=== PATIENT | female | born 1960 | race Caucasian/White ===

== ENCOUNTER 2022-05-09 10:46 | Inpatient (IN) | payer BC ==
[~2022-05-09] VITALS: Ht 157.5 cm; Wt 124.3 kg
[2022-05-09] MEDS ORDERED: METHYLPREDNISOLONE SOD SUCC 125 MG/2ML VIAL IV STA (11:08)
[2022-05-09] MEDS ORDERED: ALBUTEROL/IPRATROPIUM 3 ML NEB NEB ONE (11:15)
[2022-05-09 12:00] LABS: BASOPHILS # (AUTO) 0.1 (0.0-0.1); BASOPHILS % 0.4 % (0.0-1.0); EOSINOPHILS # (AUTO) 0.4 (0.0-0.4); EOSINOPHILS % 3.9 % (0.0-6.0); HEMATOCRIT 55.1 % (34.2-44.1); HEMOGLOBIN 16.9 g/dL (12.0-16.0); LYMPHOCYTES # (AUTO) 1.4 (1.0-3.2); LYMPHOCYTES % 12.2 % (18.0-39.1); MEAN CORPUSCULAR HEMOGLOBIN 31.1 pg (28-32); MEAN CORPUSCULAR HGB CONC 30.7 g/dL (31-35); MEAN CORPUSCULAR VOLUME 101.3 fL (81-99); MONOCYTES # (AUTO) 0.7 (0.2-0.8); MONOCYTES % 6.1 % (4.4-11.3); NEUTROPHILS # (AUTO) 8.6 (2.1-6.9); PLATELET COUNT 237 x10e3/uL (140-360); RED BLOOD COUNT 5.44 x10e6/uL (3.6-5.1); RED CELL DISTRIBUTION WIDTH 11.7 % (11.7-14.4)
[2022-05-09 12:12] LABS: INR 1.02; PROTHROMBIN TIME 13.6 seconds (11.9-14.5)
[2022-05-09 12:20] LABS: ALBUMIN 3.9 g/dL (3.5-5.0); ALBUMIN/GLOBULIN RATIO 0.9 (0.8-2.0); ANION GAP 14.9 mmol/L (8-16); CALCIUM 9.7 mg/dL (8.4-10.2); CREATININE, SERUM 0.7 mg/dL (0.57-1.11); MAGNESIUM 1.9 MG/DL (1.3-2.1); POTASSIUM 3.9 mmol/L (3.5-5.1)
[2022-05-09 12:25] LABS: B-TYPE NATRIURETIC PEPTIDE2 12.7 pg/mL (0-100)
[2022-05-09 12:27] LABS: CREATINE KINASE MB 0.7 ng/mL (0-5.0)
[2022-05-09] MEDS ORDERED: Morphine 2mg Syringe 2 MG/ML SYR IV STA (12:45)
[2022-05-09] MEDS ORDERED: ONDANSETRON HCL INJ 2MG/ML 2ML 2 MG/ML VIAL IV STA (12:45)
[2022-05-09] MEDS ORDERED: SODIUM CHLORIDE 0.9% 1000ML 1,000 ML IV SCH (12:45)
[2022-05-09] MEDS ORDERED: PROMETHAZINE HCL 25 MG TAB PO PRN ×2 (13:00→14:30)
[2022-05-09] MEDS ORDERED: LEVALBUTEROL HCL SOLN NEBU 0.63 MG/3 ML NEB INH PRN (13:00)
[2022-05-09] MEDS ORDERED: METHYLPREDNISOLONE SOD SUCC 125 MG/2ML VIAL IV SCH (14:00)
[2022-05-09] MEDS ORDERED: ZOLPIDEM TARTRATE 5 MG TAB PO PRN (14:30)
[2022-05-09 15:15] VITALS: BP 135/88
[2022-05-09 16:27] VITALS: BP 135/88
[2022-05-09 16:35] VITALS: BP 135/88
[2022-05-09] MEDS ORDERED: TRAZODONE HCL100 MG PO (16:47)
[2022-05-09] MEDS ORDERED: LUNESTA1 MG PO (16:47)
[2022-05-09] MEDS ORDERED: SERTRALINE HCL50 MG PO (16:47)
[2022-05-09] MEDS ORDERED: NEURONTIN400 MG PO (16:47)
[2022-05-09] MEDS: BUDESONIDE/FORMOTEROL 160/4.5MCG INHALER INH SCH (19:00)
[2022-05-09] MEDS ORDERED: FUROSEMIDE INJ 10 MG/ML 4 ML VIAL IV ONE (19:10)
[2022-05-09 19:12] LABS: CREATINE KINASE 32 IU/L (29-168)
[2022-05-09 20:00] VITALS: BP 138/86
[2022-05-09] MEDS: METHYLPREDNISOLONE SOD SUCC 125 MG/2ML VIAL IV SCH (21:37)
[2022-05-09] MEDS ORDERED: METHADONE HCL10 MG PO (21:51)
[2022-05-09] MEDS ORDERED: METHADONE HCL 5 MG TAB PO PRN (22:45)
[2022-05-10] VITALS (7 sets, daily range): BP systolic 129–159; BP diastolic 80–89
[2022-05-10] MEDS ORDERED: POLYETHYLENE GLYCOL 3350 17 GM PACK PO PRN (00:30)
[2022-05-10] MEDS ORDERED: ONDANSETRON HCL INJ 2MG/ML 2ML 2 MG/ML VIAL IV PRN (00:30)
[2022-05-10] MEDS ORDERED: ACETAMINOPHEN 325 MG TAB PO PRN (00:30)
[2022-05-10] MEDS ORDERED: TEMAZEPAM 15 MG CAP PO PRN (00:30)
[2022-05-10] MEDS ORDERED: METOPROLOL TARTRATE INJ 1 MG/ML VIAL IV PRN (00:30)
[2022-05-10 05:56] LABS: BASOPHILS % 0.1 % (0.0-1.0); HEMATOCRIT 52.7 % (34.2-44.1); LYMPHOCYTES # (AUTO) 0.8 (1.0-3.2); LYMPHOCYTES % 5.3 % (18.0-39.1); MEAN CORPUSCULAR HEMOGLOBIN 31.1 pg (28-32); MEAN CORPUSCULAR HGB CONC 30.4 g/dL (31-35); MEAN CORPUSCULAR VOLUME 102.3 fL (81-99); MONOCYTES # (AUTO) 0.3 (0.2-0.8); MONOCYTES % 2.3 % (4.4-11.3); NEUTROPHILS # (AUTO) 13.6 (2.1-6.9); NEUTROPHILS % 91.8 % (38.7-80.0); PLATELET COUNT 205 x10e3/uL (140-360); RED BLOOD COUNT 5.15 x10e6/uL (3.6-5.1); RED CELL DISTRIBUTION WIDTH 11.5 % (11.7-14.4)
[2022-05-10] MEDS: BUDESONIDE/FORMOTEROL 160/4.5MCG INHALER INH SCH (06:46)
[2022-05-10 07:02] LABS: CREATINE KINASE MB 0.8 ng/mL (0-5.0)
[2022-05-10 07:14] LABS: ALBUMIN 3.4 g/dL (3.5-5.0); ALBUMIN/GLOBULIN RATIO 0.8 (0.8-2.0); CREATININE, SERUM 0.67 mg/dL (0.57-1.11)
[2022-05-10 07:23] LABS: CHOL/HDL RATIO 3.4 (3.0-3.6); PHOSPHORUS 2.1 MG/DL (2.3-4.7)
[2022-05-10 07:42] LABS: THYROID STIMULATING HORMONE 0.485 uIU/mL (0.350-4.940)
[2022-05-10] MEDS: FAMOTIDINE 20 MG TAB PO SCH ×2 (07:50→17:17)
[2022-05-10] MEDS: DOCUSATE SODIUM 100 MG CAP PO SCH ×2 (09:09→17:17)
[2022-05-10] MEDS: METHYLPREDNISOLONE SOD SUCC 125 MG/2ML VIAL IV SCH (09:10)
[2022-05-10] MEDS ORDERED: METHADONE HCL 10 MG TAB PO PRN (10:45)
[2022-05-10] MEDS ORDERED: SYMBICORT 16010.2 GM INH (14:29)
[2022-05-10] MEDS ORDERED: AZITHROMYCIN250 MG PO (14:29)
[2022-05-10] MEDS ORDERED: PREDNISONE20 MG PO (14:29)
[2022-05-10] MEDS ORDERED: ACETAMINOPHEN325 M1 PO (14:29)
[2022-05-10] MEDS ORDERED: PHOS-NAK PACKE1 EACH PO (14:29)
[2022-05-10] MEDS: GABAPENTIN 300 MG CAP PO SCH ×2 (15:00→15:50)
[2022-05-10] MEDS ORDERED: TRAZODONE HCL 50 MG TAB PO SCH (21:00)
[2022-05-10] MEDS ORDERED: SERTRALINE HCL 50 MG TAB PO SCH (21:00)
[2022-05-10] MEDS ORDERED: METHYLPREDNISOLONE SOD SUCC 40 MG/ML VIAL 1ML IV SCH (21:00)
[2022-05-10] MEDS ORDERED: ESZOPICLONE 1 MG PO SCH (21:00)
== END 2022-05-10 18:46 | disposition home or self-care (01) | DRG 871 ==
LOC: ER 10:56 → ERHOLD 12:43 → MED/SURG3 14:31
PROVIDERS: ADMIT Internal Medicine; ATTEND Internal Medicine
DX: A41.9 Sepsis, unspecified organism (principal); J12.9 Viral pneumonia, unspecified; J96.01 Acute respiratory failure with hypoxia; J45.901 Unspecified asthma with (acute) exacerbation; Z68.43 Body mass index [BMI] 50.0-59.9, adult; G89.3 Neoplasm related pain (acute) (chronic); E66.01 Morbid (severe) obesity due to excess calories; F41.9 Anxiety disorder, unspecified; R07.89 Other chest pain; I10 Essential (primary) hypertension; E83.39 Other disorders of phosphorus metabolism; T45.1X5A Adverse effect of antineoplastic and immunosuppressive drugs, initial encounter; L27.0 Generalized skin eruption due to drugs and medicaments taken internally; Z85.3 Personal history of malignant neoplasm of breast; Z90.13 Acquired absence of bilateral breasts and nipples; Z90.49 Acquired absence of other specified parts of digestive tract; Z96.652 Presence of left artificial knee joint; Z80.8 Family history of malignant neoplasm of other organs or systems; Z83.3 Family history of diabetes mellitus; Z82.49 Family history of ischemic heart disease and other diseases of the circulatory system; Z82.3 Family history of stroke; Z88.5 Allergy status to narcotic agent; Z88.0 Allergy status to penicillin; Z88.8 Allergy status to other drugs, medicaments and biological substances
CPT/HCPCS: 36415; 71045; 71250; 80053; 80061; 82550; 82553; 83036; 83605; 83735; 83880; 84100; 84443; 84484; 85025; 85610; 85730; 87040; 93005; 93306; 94640; 94664; 94799; 99284; J0456; J0696; J1940; J2270; J2930; J7030; J7050